=== PATIENT | female | born 1950 | race Two or more races ===

== ENCOUNTER 2019-12-05 19:29 | Emergency (ER) | payer OTHER ==
[~2019-12-05] VITALS: Ht 157.5 cm; Wt 63.5 kg
[2019-12-05 22:42] VITALS: BP 138/83
== END 2019-12-05 22:44 | disposition home or self-care (01) ==
LOC: ER 19:29
DX: E11.9 Type 2 diabetes mellitus without complications (principal); I10 Essential (primary) hypertension; Z79.4 Long term (current) use of insulin; Z90.710 Acquired absence of both cervix and uterus
CPT/HCPCS: 82962; 99282